=== PATIENT | female | born 2000 | race Caucasian/White ===

== ENCOUNTER 2023-04-20 15:48 | Outpatient (CLI) | payer MEDICAID, SELFPAY ==
--- NOTE | 2023-04-20 16:04 | XRR_ITS ---
PROCEDURE INFORMATION: Exam: XR Lumbosacral Spine Exam date and time: 04/20/2023 4:15 PM Age: 22 years old Clinical indication: Injury or trauma; Fall; Blunt trauma (contusions or hematomas); Injury date: 2 days ago; Additional info: Injury of back TECHNIQUE: Imaging protocol: Radiologic exam of the lumbosacral spine. Views: 2 or 3 views. COMPARISON: No relevant prior studies available. FINDINGS: Bones/joints: Mild levocurvature lower lumbar spine and dextrocurvature upper lumbar spine. Minimal reverse listhesis at L5-S1 and L4-5. Vertebral body and intervertebral disc heights are intact. No fracture or dislocation. IUD in place. Soft tissues: Unremarkable. XR/XR lumbar spine 2-3V* [id number] IMPRESSION: Mild curvature and minimal reverse listhesis of lower lumbar spine. No acute pathology.
--- NOTE | 2023-04-20 16:05 | XRR_ITS ---
PROCEDURE INFORMATION: Exam: XR Right Ribs Exam date and time: 04/20/2023 4:15 PM Age: 22 years old Clinical indication: Injury or trauma; Fall; Rib area; Blunt trauma (contusions or hematomas); Injury date: 2 days ago TECHNIQUE: Imaging protocol: Radiologic exam of the right ribs. Views: 2 views. COMPARISON: No relevant prior studies available. FINDINGS: Bones/joints: Normal. Soft tissues: Normal. XR/XR ribs RT 2V* [id number] IMPRESSION: No acute findings.
== END 2023-04-20 15:49 | disposition home or self-care (01) ==
PROVIDERS: PCP Family Medicine; Visit Provider Family Medicine
DX: S39.92XA Unspecified injury of lower back, initial encounter (principal); W19.XXXA Unspecified fall, initial encounter; M43.9 Deforming dorsopathy, unspecified
CPT/HCPCS: 71100; 72100

== ENCOUNTER → 2024-07-16 16:14 | Outpatient (BNVA) | payer MEDICAID, SELFPAY | PROVIDERS: PCP Family Medicine; Visit Provider Emergency Medicine | DX: N39.0 Urinary tract infection, site not specified (principal) | CPT/HCPCS: 81000 ==

== ENCOUNTER 2025-03-04 12:33 | Emergency (ER) | payer OTHER, SELFPAY ==
[2025-03-04 12:42] VITALS: BP 120/67; PULSE 87; RESP 22; TEMP 37.1; O2SAT 98
--- NOTE | 2025-03-04 13:02 | W.ED.ANIMALB ---
HPI - Animal Bite General: Chief Complaint: Animal Bite Stated Complaint: dog bite, R calf Time Seen by Provider: 03/04/25 13:01 Source: patient Mode of arrival: ambulatory Limitations: no limitations History of Present Illness: Patient is a 24-year-old female presents to ED today for evaluation of a dog bite to her right calf that she sustained earlier today. 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 She states the dog bit her leg while she was wearing pants. She states the pants did not rip/tear and there are no breaks in her skin but she does have an abrasion to her calf. Patient states her tetanus is not up-to-date. Patient also believes she is and concerned about the tdap and possibility of needing antibiotics. complaint: animal bite Onset (ago): hour(s) Animal: dog Description of animal: household pet, immunizations UTD and appeared well Mechanism: bite Location - Extremities: Right: lower leg Context: provoked Associated symptoms: Reports no associated symptoms; Deny chills or fever(s) Related Data Home Medications ?Medication ?Instructions ?Recorded ?Confirmed cetirizine 10 mg capsule (Zyrtec) 10 mg PO DAILY PRN 05/30/23 11/25/24 rizatriptan 10 mg tablet See Rx Instructions PO .COMPLEX 05/30/23 11/25/24 topiramate 50 mg tablet (Topamax) 50 mg PO BID 05/30/23 11/25/24 Previous Rx's ?Medication ?Instructions ?Recorded duloxetine 20 mg capsule,delayed 40 mg (2 x 20 mg) PO .q am #60 caps 11/25/24 release amoxicillin 875 mg-potassium 1 tab PO BID #14 tabs 03/04/25 clavulanate 125 mg tablet Allergies Allergy/AdvReac Type Severity Reaction Status Date / Time codeine Allergy Severe ALGY-Difficulty Verified 11/25/24 08:54 Breathing Alpha-Gal Allergy Mild ALGY-Hives Verified 11/25/24 08:54 ([id number],3-Gala adhesive Allergy rash Verified 11/25/24 08:54 sulfamethoxazole (From Allergy Unknown Verified 03/04/25 12:42 Bactrim) trimethoprim (From Bactrim) Allergy Unknown Verified 03/04/25 12:42 Review of Systems Const: Denies: fever(s), chills, body aches, fatigue or malaise Musc: Reports: extremity pain; Denies: extremity swelling, joint pain, joint swelling or joint redness Skin/Breast: Denies: erythema Neuro: Denies: numbness in extremities, weakness in extremities, sensory changes or difficulty walking PFS ED PFSH: Medical History Psychiatric care Social History Second hand smoke exposure: No Substance/Drug Use: current Substance/Drug use frequency: few times a week Physical Exam Const: COMMON NORMALS: no acute distress, average body habitus, no limitations, healthy appearing, alert and well nourished Extremity: COMMON NORMALS: full ROM, capillary refill normal, no clubbing, cyanosis or edema and no pedal edema GENERAL: Yes normal exam except as noted RIGHT LOWER EXTREMITY: Yes lower leg (abrasion to R calf-no obvious breaks in skin; no punctures) Right lower leg: Yes neurovascular exam (normal) Neuro: COMMON NORMALS: moves all extremities, no focal motor deficits and no sensory deficits noted SENSORIUM/ORIENTATION: Yes alert Skin: NARRATIVE SKIN EXAM: see above Course Vital Signs: Vital signs: Vital Signs Temperature 98.7 F 03/04/25 12:42 Pulse Rate 87 03/04/25 12:42 Respiratory Rate 22 H 03/04/25 12:42 Blood Pressure 120/67 03/04/25 12:42 Pulse Oximetry 98 03/04/25 12:42 Oxygen Delivery Me thod Room Air 03/04/25 12:42 MDM - Animal Bite Medical Decision Making Patient here after she was bit by a dog to her R calf. Animal is UTD on immunizations. She was bit through her pants and her pants were not ripped or torn. She does not have any obvious breaks in her skin or puncture wounds. She does have multiple bite/abrasions to the right calf. I would have a low suspicion for infection and patient is hesitant about starting antibiotics even though I assured her Augmentin is considered safe in . She would like to monitor wound closely and will fill antibiotics if needed. I think this is reasonable. She was agreeable to a tdap. Differential Diagnosis Likely bite by animal and dog bite Medical Records I reviewed the patient's medical records. No radiology studies performed this visit Discharge Plan Discharge Patient Disposition: Home Clinical Impression: Dog bite of right lower leg Qualifiers: Encounter type: initial encounter Qualified Code(s): S81.851A - Open bite, right lower leg, initial encounter Condition: Stable Prescriptions: New amoxicillin-pot clavulanate 875-125 mg tablet 1 tab PO BID Qty: 14 0RF No Action topiramate [Topamax] 50 mg tablet 50 mg PO BID rizatriptan 10 mg tablet See Rx Instructions PO .COMPLEX Rx Instructions: take 1 tab at onset of headache; if no relief may repeat 1 tab after at least 2 hrs; max = 3 tabs/24 hr PO Zyrtec 10 mg capsule 10 mg PO DAILY PRN duloxetine 20 mg capsule,delayed release(DR/EC) 40 mg PO .q am Qty: 60 1RF Rx Instructions: Take two capsules by mouth every morning Discharge Orders: Discharge ED (Routine); Ordered 03/04/25 Ordered By: Daniela Hall Referrals: Tammy Paniagua DO [Primary Care Provider, [facility]] Patient Instructions: Animal Bite (ED), Patient Portal & Ralph Instructions Activity Restrictions/Additional Instructions: As we discussed, monitor wound for signs of infection including redness, swelling, increased pain, streaking up your leg, or any other concerns you may have. You may seek medical re-evaluation or fill your antibiotics and start them at this time. As we discussed, I would have a low suspicion for infection as there were no breaks in your skin. Tetanus is updated today. You have indicated the dog is up-to-date on rabies immunizations. Print Language: Israeli Coding Level of Care Code ED Production Packager for Po Dickerson
[2025-03-04] MEDS: tetanus-dipt-pertussis 0.5 mL SDV IM (13:15)
[2025-03-04 13:18] VITALS: BP 126/82; PULSE 85; RESP 16; O2SAT 99
== END 2025-03-04 13:19 | disposition home or self-care (01) ==
PROVIDERS: Emergency Provider Physician Assistant; PCP Family Medicine
DX: S81.851A Open bite, right lower leg, initial encounter (principal); W54.0XXA Bitten by dog, initial encounter
CPT/HCPCS: 90471; 90715; 99283